=== PATIENT | female | born 1985 | race Caucasian/White ===

== ENCOUNTER 2018-01-10 17:32 | Emergency (ER) | END 2018-01-10 20:21 | disposition home or self-care (01) ==

== ENCOUNTER 2018-01-16 16:23 | Emergency (ER) | END 2018-01-16 19:04 | disposition home or self-care (01) ==

== ENCOUNTER 2018-05-03 00:24 | Emergency (ER) | payer MEDICAID, OTHER ==
[~2018-05-03] VITALS: Ht 152.4 cm; Wt 77.7 kg
[~2018-05-03 00:24] MED LIST: CEPH-443 PO; DIAZ5TAB PO; DOCU-144 PO; HYDR-3498 PO; HYDR-4011 PO; IBUP-1542 PO; MED4DP PO; TAMS-14 PO
[2018-05-03 00:32] VITALS: Ht 152.4 cm; Wt 77.7 kg
[2018-05-03] MEDS ORDERED: SOD CHLORIDE 0.9% 1,000 ML IV STA (01:19)
[2018-05-03] MEDS ORDERED: KETOROLAC 30 MG INJ IV STA (01:19)
[2018-05-03] MEDS ORDERED: ONDANSETRON 4 MG INJ IV STA (01:19)
[2018-05-03] MEDS ORDERED: morphine 4 MG/ML VIAL IV STA (02:27)
[2018-05-03] MEDS ORDERED: FAMO20TA18 PO (03:03)
[2018-05-03] MEDS ORDERED: ONDA4TAB14 PO (03:03)
[2018-05-03] MEDS ORDERED: HYDR-4011 PO (03:03)
[2018-05-03 03:30] VITALS: BP 128/60; PULSE 75; RESP 16
--- NOTE | 2018-05-03 04:19 | ERD ---
ER Documentation Chief Complaint Chief Complaint RUQ burning & stabbing abd pain radiating to right flank X3 days,vomiting HPI 32-year-old female presenting with right upper quadrant pain. Patient describes it as a stabbing type sensation that radiates to her back. She states she also has some pain along the flank. She denies any vomiting. Feels nauseous. Has not taken medications for symptoms. Denies any medical problems. NKDA. Surgical history and cholecystectomy. Social history denies ROS All systems reviewed and are negative except as per history of present illness. Medications Home Meds Active Scripts Famotidine* (Famotidine*) 20 Mg Tablet, 20 MG PO BID, #60 TAB Prov:NATASHA DAVIS PA-C 05/03/18 Ondansetron (Ondansetron Odt) 4 Mg Tab.rapdis, 4 MG PO Q6H PRN for NAUSEA AND/OR VOMITING, #10 TAB Prov:NATASHA DAVIS PA-C 05/03/18 Hydrocodone/Acetaminophen (Sylvester 5-325 Tablet) 1 Each Tablet, 1 TAB PO Q6H PRN for PAIN, #7 TAB Prov:NATASHA DAVIS PA-C 05/03/18 Tamsulosin Hcl* (Flomax*) 0.4 Mg Cap.er.24h, 0.4 MG PO BID, #30 CAP Prov:YESIKA RILEY PA-C 01/16/18 Ibuprofen* (Motrin*) 600 Mg Tab, 600 MG PO Q6, #30 TAB Prov:YESIKA RILEY PA-C 01/16/18 Cephalexin* (Keflex*) 500 Mg Capsule, 500 MG PO QID for 5 Days, CAP Prov:YESIKA RILEY PA-C 01/16/18 Docusate Sodium* (Colace*) 100 Mg Capsule, 100 MG PO TID, #30 CAP Prov:YESIKA RILEY PA-C 01/16/18 Hydrocodone/Acetaminophen (Sylvester 5-325 Tablet) 1 Each Tablet, 1 TAB PO Q6H PRN for PAIN, #7 TAB Prov:YESIKA RILEY PA-C 01/16/18 Methylprednisolone* (Medrol* DOSE PACK) 4 Mg/Dose-Pack Tab.ds.pk, 4 MG PO . DIRECTED for 6 Days, #1 PACKET Prov:VU KOENIG 01/10/18 Diazepam* (Valium*) 5 Mg Tablet, 5 MG PO Q8, #10 TAB Prov:VU KOENIG 01/10/18 Ibuprofen* (Motrin*) 600 Mg Tab, 600 MG PO Q6, #30 TAB Prov:VU KOENIG 01/10/18 Reported Medications Tamsulosin Hcl* (Flomax*) 0.4 Mg Cap.er.24h, 0.4 MG PO DAILY, CAP 06/23/14 Hydrocodone Bit-Acetaminophen* (Sylvester*) 5-325 Mg Tab, 1 TAB PO QID PRN for SEVERE PAIN LEVEL 7-10, TAB 06/23/14 Allergies Allergies: Coded Allergies: No Known Allergy (Unverified , 12/16/13) PMhx/Soc Medical and Surgical Hx: pt denies Medical Hx Hx Neurological Disorder: No Hx Respiratory Disorders: No Hx Cardiac Disorders: No Hx Psychiatric Problems: No Hx Miscellaneous Medical Probl: No Hx Alcohol Use: No Hx Substance Use: No Hx Tobacco Use: No Smoking Status: Never smoker FmHx Family History: No diabetes, No coronary disease, No other Physical Exam Vitals Vital Signs Date Temp Pulse Resp B/P (MAP) Pulse Ox O2 O2 Flow FiO2 Time Delivery Rate 05/03/18 97.4 75 16 128/60 99 Room Air 03:30 (82) 05/03/18 99.0 92 18 141/81 99 00:32 (101) Physical Exam GENERAL: The patient is well-appearing, well-nourished, in no acute distress HEENT: Atraumatic. Conjunctivae are pink. Pupils equal, round, and reactive to light. There is no scleral icterus. Tympanic membranes clear bilaterally. Oropharynx clear. No nystagmus or photophobia. CHEST: Clear to auscultation bilaterally. There are no rales, wheezes or rhonchi. HEART: Regular rate and rhythm. No murmurs, clicks, rubs or gallops. No S3 or S4. ABDOMEN:Soft, nontender and nondistended. Good bowel sounds. No rebound or guarding. No gross peritonitis. No gross organomegaly or masses. No Leonard sign or McBurney point tenderness. BACK: No midline or flank tenderness. Result Diagram: 05/03/18 0135 05/03/18 0135 Results 24 hrs Laboratory Tests Test 05/03/18 01:35 05/03/18 01:41 05/03/18 01:45 White Blood Count 10.4 10^3/ul Red Blood Count 4.46 10^6/ul Hemoglobin 12.8 g/dl Hematocrit 37.7 % Mean Corpuscular Volume 84.5 fl Mean Corpuscular Hemoglobin 28.7 pg Mean Corpuscular 34.0 g/dl Hemoglobin Concent Red Cell Distribution Width 12.6 % Platelet Count 258 10^3/UL Mean Platelet Volume 8.9 fl Immature Granulocytes % 0.400 % Neutrophils % 59.6 % Lymphocytes % 31.3 % Monocytes % 6.8 % Eosinophils % 1.4 % Basophils % 0.5 % Nucleated Red Blood Cells % 0.0 /100WBC Immature Granulocytes # 0.040 10^3/ul Neutrophils # 6.2 10^3/ul Lymphocytes # 3.3 10^3/ul Monocytes # 0.7 10^3/ul Eosinophils # 0.2 10^3/ul Basophils # 0.1 10^3/ul Nucleated Red Blood Cells # 0.0 10^3/ul Sodium Level 141 mmol/L Potassium Level 3.7 mmol/L Chloride Level 106 mmol/L Carbon Dioxide Level 24 mmol/L Anion Gap 11 Blood Urea Nitrogen 15 mg/dl Creatinine 0.61 mg/dl Est Glomerular Filtrat > 60 mL/min Rate mL/min Glucose Level 104 mg/dl Calcium Level 9.9 mg/dl Total Bilirubin 0.2 mg/dl Direct Bilirubin 0.00 mg/dl Indirect Bilirubin 0.2 mg/dl Aspartate Amino Transf (AST/SGOT) 65 IU/L Alanine 94 IU/L Aminotransferase (ALT/SGPT) Alkaline Phosphatase 66 IU/L Total Protein 8.2 g/dl Albumin 4.5 g/dl Globulin 3.70 g/dl Albumin/Globulin Ratio 1.21 Lipase 137 U/L Urine Color STRAW Urine Clarity CLEAR Urine pH 7.0 Urine Specific [place] 1.010 Urine Ketones NEGATIVE mg/dL Urine Nitrite NEGATIVE mg/dL Urine Bilirubin NEGATIVE mg/dL Urine Urobilinogen NEGATIVE mg/dL Urine Leukocyte Esterase NEGATIVE Sonya/ul Urine Microscopic RBC 155 /HPF Urine Microscopic WBC 3 /HPF Urine Bacteria FEW /HPF Urine Hemoglobin 3+ mg/dL Urine Glucose NEGATIVE mg/dL Urine Total Protein NEGATIVE mg/dl POC Beta HCG, Qualitative NEGATIVE Current Medications Medications Dose Sig/Jeremias Start Time Status Last (Trade) Ordered Route PRN Stop Time Admin Dose Reason Admin Sodium 1,000 ml @ Q1H STAT 05/03/18 DC 05/03/18 Chloride 1,000 mls/hr IV 01:19 05/03/18 01:51 02:18 Ondansetron 4 mg ONCE STAT 05/03/18 DC 05/03/18 HCl (Zofran IV 01:19 05/03/18 01:51 Inj) 01:21 Ketorolac 30 mg ONCE STAT 05/03/18 DC 05/03/18 Tromethamine IV 01:19 05/03/18 01:51 (Toradol) 01:21 Morphine 4 mg ONCE STAT 05/03/18 DC 05/03/18 Sulfate IV 02:27 05/03/18 02:31 (morphine) 02:28 Procedures/MDM DIAGNOSTIC IMAGING REPORT Patient: MARCELLO BAUMANN : 1985 Age: 32 Sex: F [id number] DOS: 05/03/18 0119 Ordering MD: NORMAN DAVIS PA-C Location: [facility] Room/Bed: PROCEDURE: CT of the abdomen and pelvis without contrast CLINICAL INDICATION: Abdominal pain TECHNIQUE: Spiral CT images through the abdomen and pelvis without the use of contrast. The administered radiation dose is CTDI 13.92 mGy and DLP 810.06 mGy*cm. Coronal and sagittal reformatted images were submitted. One or more of the following dose reduction techniques were used: automated exposure control, adjustment of the mA and/or kV according to patient size, or use of iterative reconstruction technique. DICOM images are available. COMPARISON: CT 01/16/2018 FINDINGS: Lack of oral and intravenous contrast somewhat limits evaluation. Clear. No pleural effusion is seen. The liver is decreased in attenuation. The spleen, adrenal glands and pancreas are unremarkable. Cholecystectomy clips are visualized. There is no biliary ductal dilatation. The kidneys are normal in size and contour. There are tiny bilateral renal medullary calcifications. No hydronephrosis is seen. The aorta is normal in caliber. No adenopathy or ascites is seen. There is no evidence for bowel obstruction, free air, or abscess. The appendix is normal in appearance. . The uterus appears enlarged with an IUD in place. The bladder is unremarkable. Bilateral sacroiliac joints are narrowed and sclerotic.. IMPRESSION: Tiny bilateral renal medullary calculi. No hydronephrosis.. Fatty infiltration of the liver. Enlarged uterus with an IUD in place. MDM: 32-year-old female presenting with right upper quadrant pain and vomiting. Patient's exam is non-concerning. Patient's blood work is normal and imaging is within normal limits. Patient be discharged with supportive medications. I have low suspicion for acute abdominal emergency. I have low suspicion for bowel obstruction. Patient is discharged stricter precautions and told to follow-up with primary care within 1-2 days for close evaluation. Patient is told to follow-up with primary care and to return to ER if symptoms change or worsen. All questions answered discharge Departure Diagnosis: Primary Impression: Abdominal pain Condition: Stable Patient Instructions: Abdominal Pain Referrals: [facility] YOU HAVE RECEIVED A MEDICAL SCREENING EXAM AND THE RESULTS INDICATE THAT YOU DO NOT HAVE A CONDITION THAT REQUIRES URGENT TREATMENT IN THE EMERGENCY DEPARTMENT. FURTHER EVALUATION AND TREATMENT OF YOUR CONDITION CAN WAIT UNTIL YOU ARE SEEN IN YOUR DOCTORS OFFICE WITHIN THE NEXT 1-2 DAYS. IT IS YOUR RESPONSIBILITY TO MAKE AN APPOINTMENT FOR FOLOW-UP CARE. IF YOU HAVE A PRIMARY DOCTOR --you should call your primary doctor and schedule an appointment IF YOU DO NOT HAVE A PRIMARY DOCTOR YOU CAN CALL OUR PHYSICIAN REFERRAL HOTLINE AT IF YOU CAN NOT AFFORD TO SEE A PHYSICIAN YOU CAN CHOSE FROM THE FOLLOWING [facility] [address] [facility] [facility] [address] [facility] [facility] [address] [facility] [facility] [address] [facility]. [facility] [address] [facility]. [facility]. [address] Additional Instructions: FOLLOW UP WITH YOUR PRIMARY CARE PHYSICIAN TOMORROW.Return to this facility if you are not improving as expected. NATASHA DAVIS PA-C May 03, 2018 04:19
== END 2018-05-03 03:32 | disposition home or self-care (01) ==
LOC: FTE 00:24
DX: R10.11 Right upper quadrant pain (principal)
CPT/HCPCS: 36415; 74176; 80053; 81001; 81025; 83690; 85025; 96361; 96374; 96375; J1885; J2270; J2405; J7030; Z7502

== ENCOUNTER 2018-06-16 13:41 | Emergency (ER) | payer MEDICAID ==
[~2018-06-16] VITALS: Ht 157.5 cm; Wt 76.0 kg
[~2018-06-16 13:41] MED LIST changes: +FAMO20TA18 PO; +ONDA4TAB14 PO
[2018-06-16 13:47] VITALS: Ht 157.5 cm; Wt 76.0 kg
[2018-06-16] MEDS ORDERED: ONDANSETRON 4 MG INJ IV STA (16:14)
[2018-06-16] MEDS ORDERED: morphine 4 MG/ML VIAL IV STA (16:14)
[2018-06-16] MEDS ORDERED: KETOROLAC 15 MG INJ IV STA (16:14)
[2018-06-16] MEDS ORDERED: HYDR-4011 PO (17:25)
[2018-06-16] MEDS ORDERED: ONDA4TAB14 PO (17:25)
[2018-06-16 17:39] VITALS: BP 126/66; PULSE 72; RESP 18
--- NOTE | 2018-06-16 17:48 | ERD ---
ER Documentation Chief Complaint Chief Complaint RIGHT FLANK PAIN X 9 DAYS, DENIES DYSURIA HPI 32-year-old female with a history of kidney stones presenting with right flank pain that started yesterday. She denies any hematuria or dysuria. The pain has been intermittent but today was much more severe and constant. The pain is in the right flank and radiates to the right lower quadrant. She states that this is typical pain for her kidney stones. Her last episode of kidney stones was about 2 years ago and at that time she required surgery. She complains of associated nausea without vomiting. Currently her pain is an 8 out of 10 with no alleviating or exacerbating factors. Ibuprofen did not help at home. ROS All systems reviewed and are negative except as per history of present illness. Medications Home Meds Active Scripts Ondansetron (Ondansetron Odt) 4 Mg Tab.rapdis, 4 MG PO Q6H PRN for NAUSEA AND/OR VOMITING, #10 TAB Prov:RIC KUMAR MD 06/16/18 Hydrocodone/Acetaminophen (Waldo 5-325 Tablet) 1 Each Tablet, 1 TAB PO Q6H PRN for PAIN, #7 TAB Prov:RIC KUMAR MD 06/16/18 Famotidine* (Famotidine*) 20 Mg Tablet, 20 MG PO BID, #60 TAB Prov:NATASHA DAVIS PA-C 05/03/18 Ondansetron (Ondansetron Odt) 4 Mg Tab.rapdis, 4 MG PO Q6H PRN for NAUSEA AND/OR VOMITING, #10 TAB Prov:NATASHA DAVIS PA-C 05/03/18 Hydrocodone/Acetaminophen (Waldo 5-325 Tablet) 1 Each Tablet, 1 TAB PO Q6H PRN for PAIN, #7 TAB Prov:NATASHA DAVIS PA-C 05/03/18 Tamsulosin Hcl* (Flomax*) 0.4 Mg Cap.er.24h, 0.4 MG PO BID, #30 CAP Prov:YESIKA RILEY PA-C 01/16/18 Ibuprofen* (Motrin*) 600 Mg Tab, 600 MG PO Q6, #30 TAB Prov:YESIKA RILEY PA-C 9/22/18 Cephalexin* (Keflex*) 500 Mg Capsule, 500 MG PO QID for 5 Days, CAP Prov:YESIKA RILEY PA-C 01/16/18 Docusate Sodium* (Colace*) 100 Mg Capsule, 100 MG PO TID, #30 CAP Prov:YESIKA RILEY PA-C 01/16/18 Hydrocodone/Acetaminophen (Waldo 5-325 Tablet) 1 Each Tablet, 1 TAB PO Q6H PRN for PAIN, #7 TAB Prov:YESIKA RILEY PA-C 01/16/18 Methylprednisolone* (Medrol* DOSE PACK) 4 Mg/Dose-Pack Tab.ds.pk, 4 MG PO . DIRECTED for 6 Days, #1 PACKET Prov:VU KOENIG 01/10/18 Diazepam* (Valium*) 5 Mg Tablet, 5 MG PO Q8, #10 TAB Prov:VU KOENIG 01/10/18 Ibuprofen* (Motrin*) 600 Mg Tab, 600 MG PO Q6, #30 TAB Prov:VU KOENIG 01/10/18 Reported Medications Tamsulosin Hcl* (Flomax*) 0.4 Mg Cap.er.24h, 0.4 MG PO DAILY, CAP 06/23/14 Hydrocodone Bit-Acetaminophen* (Waldo*) 5-325 Mg Tab, 1 TAB PO QID PRN for SEVERE PAIN LEVEL 7-10, TAB 06/23/14 Allergies Allergies: Coded Allergies: No Known Allergy (Unverified , 06/16/18) PMhx/Soc History of Surgery: Yes (Surgery for kidney stones) Hx Neurological Disorder: No Hx Respiratory Disorders: No Hx Cardiac Disorders: No Hx Psychiatric Problems: No Hx Miscellaneous Medical Probl: Yes (Kidney stones) Hx Alcohol Use: No Hx Substance Use: No Hx Tobacco Use: No Smoking Status: Never smoker FmHx Family History: No diabetes Physical Exam Vitals Vital Signs Date Temp Pulse Resp B/P (MAP) Pulse Ox O2 O2 Flow FiO2 Time Delivery Rate 06/16/18 98.1 72 18 126/66 100 Room Air 17:39 (86) 06/16/18 75 18 122/64 100 Room Air 16:51 (83) 06/16/18 97.6 78 16 126/92 100 13:47 (103) Physical Exam Const: Mild distress secondary to pain, nontoxic Head: Atraumatic Eyes: Normal Conjunctiva ENT: Normal External Ears, Nose and Mouth. Neck: Full range of motion. No meningismus. Resp: Clear to auscultation bilaterally Cardio: Regular rate and rhythm, no murmurs Abd: Soft, right lower quadrant tender without rebound or guarding, non distended. Normal bowel sounds Skin: No petechiae or rashes Back: Mild right CVA tenderness Ext: No cyanosis, or edema Neur: Awake and alert Psych: Normal Mood and Affect Result Diagram: 06/16/18 1632 06/16/18 1632 Results 24 hrs Laboratory Tests Test 06/16/18 16:32 06/16/18 16:42 White Blood Count 8.3 10^3/ul Red Blood Count 4.36 10^6/ul Hemoglobin 12.5 g/dl Hematocrit 38.1 % Mean Corpuscular Volume 87.4 fl Mean Corpuscular Hemoglobin 28.7 pg Mean Corpuscular Hemoglobin Concent 32.8 g/dl Red Cell Distribution Width 13.0 % Platelet Count 235 10^3/UL Mean Platelet Volume 9.2 fl Immature Granulocytes % 0.400 % Neutrophils % 59.8 % Lymphocytes % 32.1 % Monocytes % 6.2 % Eosinophils % 1.0 % Basophils % 0.5 % Nucleated Red Blood Cells % 0.0 /100WBC Immature Granulocytes # 0.030 10^3/ul Neutrophils # 5.0 10^3/ul Lymphocytes # 2.7 10^3/ul Monocytes # 0.5 10^3/ul Eosinophils # 0.1 10^3/ul Basophils # 0.0 10^3/ul Nucleated Red Blood Cells # 0.0 10^3/ul Urine Color STRAW Urine Clarity SLIGHTLY CLOUDY Urine pH 7.0 Urine Specific [place] 1.009 Urine Ketones NEGATIVE mg/dL Urine Nitrite NEGATIVE mg/dL Urine Bilirubin NEGATIVE mg/dL Urine Urobilinogen NEGATIVE mg/dL Urine Leukocyte Esterase NEGATIVE Sonya/ul Urine Microscopic RBC 1 /HPF Urine Microscopic WBC 2 /HPF Urine Squamous Epithelial Cells FEW /HPF Urine Bacteria FEW /HPF Urine Hemoglobin NEGATIVE mg/dL Urine Glucose NEGATIVE mg/dL Urine Total Protein NEGATIVE mg/dl Sodium Level 141 mmol/L Potassium Level 4.2 mmol/L Chloride Level 99 mmol/L Carbon Dioxide Level 28 mmol/L Anion Gap 14 Blood Urea Nitrogen 14 mg/dl Creatinine 0.72 mg/dl Est Glomerular Filtrat Rate mL/min > 60 mL/min Glucose Level 95 mg/dl Calcium Level 9.6 mg/dl POC Beta HCG, Qualitative NEGATIVE Current Medications Medications Dose Sig/Jeremias Start Time Status Last (Trade) Ordered Route PRN Stop Time Admin Dose Reason Admin Morphine 4 mg ONCE STAT 06/16/18 DC 06/16/18 Sulfate IV 16:14 16:46 (morphine) 06/16/18 16:16 Ondansetron 4 mg ONCE STAT 06/16/18 DC 06/16/18 HCl (Zofran IV 16:14 16:46 Inj) 06/16/18 16:16 Ketorolac 15 mg ONCE STAT 06/16/18 DC 06/16/18 Tromethamine IV 16:14 16:46 (Toradol) 06/16/18 16:16 Procedures/MDM EMERGENT LABS AND DIAGNOSTIC STUDIES: Lab Results above were reviewed and interpreted by me. CBC: no anemia or evidence of infection BMP: No evidence of electrolyte abnormality, renal failure, hypoglycemia negative UA: no evidence of infection Radiology Results as interpreted by Radiology below were reviewed by Yousuf Kumar MD: Ultrasound kidneys: 1. Mild fullness of right renal collecting system. No obstructing renal calculus is visualized by ultrasound. Consider further evaluation with CT scan. 2. Normal left kidney and collecting system Initial Nursing notes reviewed. Previous Medical Records requested via the Electronic Health Record. EMERGENCY DEPARTMENT COURSE / MEDICAL DECISION MAKING: Patient is presenting with right flank pain, likely secondary to recurrent kidney stones. Since she has had a CT scan within the past 2 months, I did not repeat a CT scan. On her last CT scan in April 2018, no stones were seen. Her ultrasound today did show some fullness in the right kidney which suggests to me that she does have an obstructing kidney stone. However I do not feel any further imaging is necessary at this time as her pain is well controlled in the ED with pain medications. There is no evidence of pyelonephritis. I doubt acute appendicitis or other cause of acute surgical abdomen. Patient is stable for discharge with continued outpatient follow-up. I gave her the information for the urologist, Dr. Arana. She will need a referral from her primary care doctor. Prescription for Waldo and Zofran given. Patient understands discharge plan and feels comfortable with the plan. Strict return precautions discussed. Patient's blood pressure was elevated (>120/80) but appears stable without evidence of hypertensive emergency or urgency. The patient was counseled about the risks of hypertension and urged to pursue outpatient monitoring and therapy within a week with their primary care physician. Departure Diagnosis: Primary Impression: Right kidney stone Additional Impression: Renal colic on right side Condition: Stable Patient Instructions: Kidney Stone W/ Colic Referrals: ESEQUIEL WATSON MD Urologo [facility] YOU HAVE RECEIVED A MEDICAL SCREENING EXAM AND THE RESULTS INDICATE THAT YOU DO NOT HAVE A CONDITION THAT REQUIRES URGENT TREATMENT IN THE EMERGENCY DEPARTMENT. FURTHER EVALUATION AND TREATMENT OF YOUR CONDITION CAN WAIT UNTIL YOU ARE SEEN IN YOUR DOCTORS OFFICE WITHIN THE NEXT 1-2 DAYS. IT IS YOUR RESPONSIBILITY TO MAKE AN APPOINTMENT FOR FOLOW-UP CARE. IF YOU HAVE A PRIMARY DOCTOR --you should call your primary doctor and schedule an appointment IF YOU DO NOT HAVE A PRIMARY DOCTOR YOU CAN CALL OUR PHYSICIAN REFERRAL HOTLINE AT IF YOU CAN NOT AFFORD TO SEE A PHYSICIAN YOU CAN CHOSE FROM THE FOLLOWING [facility] [address] [facility] [address] [facility] [facility] [address] [facility] [address] [facility] [address] [facility]. [facility]. [address] Additional Instructions: Necesitas kayden cristal con un medico primario para obtener kayden referencia para sanjuanita Urologo. Si tienes fiebres o las medicinas no ayudando, regresa a la ta de emergencias. RIC KUMAR MD Jun 16, 2018 17:48
== END 2018-06-16 17:40 | disposition home or self-care (01) ==
LOC: E/R 13:41
DX: N20.0 Calculus of kidney (principal); N23 Unspecified renal colic
CPT/HCPCS: 36415; 76775; 80048; 81001; 81025; 85025; 87086; 96374; 96375; J1885; J2270; J2405; Z7502; 81003

== ENCOUNTER 2018-06-25 18:33 | Emergency (ER) | payer MEDICAID ==
[~2018-06-25] VITALS: Ht 157.5 cm; Wt 75.2 kg
[2018-06-25 18:49] VITALS: Ht 157.5 cm; Wt 75.2 kg
[2018-06-25] MEDS ORDERED: SOD CHLORIDE 0.9% 1,000 ML IV STA (22:20)
[2018-06-25] MEDS ORDERED: ONDANSETRON 4 MG INJ IV STA (22:20)
[2018-06-25] MEDS ORDERED: KETOROLAC 30 MG INJ IV STA (22:20)
[2018-06-25] MEDS ORDERED: morphine 2 MG INJ IV STA (22:20)
--- NOTE | 2018-06-25 23:50 | ERD ---
ER Documentation Chief Complaint Chief Complaint FLANK PAIN WITH DYSURIA X 2 WEEKS HPI 32 year old liberian speaking F with hx of multiple kidney stones who presents to the ED with right flank pain. Pt seen here 2 weeks ago for same complaints. Renal US was suspicious for a right sided renal stone and she was discharged home with a prescription for Zofran. She states her pain today is the same and not improved with her medications at home. Pain is intermittent, sharp in quality and radiates towards her right lower quadrant. She endorses some nausea without vomiting. Reports dysuria without any fevers, chills, fevers, chills or constipation. No other complaints. ROS All systems reviewed and are negative except as per history of present illness. Medications Home Meds Active Scripts Ibuprofen* (Ibuprofen*) 600 Mg Tablet, 600 MG PO Q6, #30 TAB Prov:WALT SILVA PA-C 06/26/18 Ondansetron (Ondansetron Odt) 4 Mg Tab.rapdis, 4 MG PO Q6H PRN for NAUSEA AND/OR VOMITING, #10 TAB Prov:RIC SPEARS MD 06/16/18 Hydrocodone/Acetaminophen ([place] 5-325 Tablet) 1 Each Tablet, 1 TAB PO Q6H PRN for PAIN, #7 TAB Prov:RIC SPEARS MD 06/16/18 Famotidine* (Famotidine*) 20 Mg Tablet, 20 MG PO BID, #60 TAB Prov:NATASHA DAVIS PA-C 05/03/18 Ondansetron (Ondansetron Odt) 4 Mg Tab.rapdis, 4 MG PO Q6H PRN for NAUSEA AND/OR VOMITING, #10 TAB Prov:NATASHA DAVIS PA-C 05/03/18 Hydrocodone/Acetaminophen ([place] 5-325 Tablet) 1 Each Tablet, 1 TAB PO Q6H PRN for PAIN, #7 TAB Prov:NATASHA DAVIS PA-C 05/03/18 Tamsulosin Hcl* (Flomax*) 0.4 Mg Cap.er.24h, 0.4 MG PO BID, #30 CAP Prov:YESIKA RILEY PA-C 01/16/18 Ibuprofen* (Motrin*) 600 Mg Tab, 600 MG PO Q6, #30 TAB Prov:YESIKA RILEY PA-C 01/16/18 Cephalexin* (Keflex*) 500 Mg Capsule, 500 MG PO QID for 5 Days, CAP Prov:YESIKA RILEY PA-C 01/16/18 Docusate Sodium* (Colace*) 100 Mg Capsule, 100 MG PO TID, #30 CAP Prov:YESIKA RILEY PA-C 01/16/18 Hydrocodone/Acetaminophen ([place] 5-325 Tablet) 1 Each Tablet, 1 TAB PO Q6H PRN for PAIN, #7 TAB Prov:YESIKA RILEY PA-C 01/16/18 Methylprednisolone* (Medrol* DOSE PACK) 4 Mg/Dose-Pack Tab.ds.pk, 4 MG PO . DIRECTED for 6 Days, #1 PACKET Prov:VU KOENIG 01/10/18 Diazepam* (Valium*) 5 Mg Tablet, 5 MG PO Q8, #10 TAB Prov:VU KOEING 01/10/18 Ibuprofen* (Motrin*) 600 Mg Tab, 600 MG PO Q6, #30 TAB Prov:VU KOENIG 01/10/18 Reported Medications Tamsulosin Hcl* (Flomax*) 0.4 Mg Cap.er.24h, 0.4 MG PO DAILY, CAP 06/23/14 Hydrocodone Bit-Acetaminophen* ([place]*) 5-325 Mg Tab, 1 TAB PO QID PRN for SEVERE PAIN LEVEL 7-10, TAB 06/23/14 Allergies Allergies: Coded Allergies: No Known Allergy (Unverified , 06/16/18) PMhx/Soc History of Surgery: No (Cholecystectomy) Anesthesia Reaction: No Hx Neurological Disorder: No Hx Respiratory Disorders: No Hx Cardiac Disorders: No Hx Psychiatric Problems: No Hx Miscellaneous Medical Probl: Yes (Nephrolithiasis) Hx Alcohol Use: No Hx Substance Use: No Hx Tobacco Use: No Smoking Status: Never smoker Physical Exam Vitals Vital Signs Date Temp Pulse Resp B/P (MAP) Pulse Ox O2 O2 Flow FiO2 Time Delivery Rate 06/26/18 98.5 65 18 105/65 100 Room Air 00:34 (78) 06/25/18 99.2 79 18 140/65 99 18:49 (90) Physical Exam Const: Mild distress secondary to pain Head: Atraumatic Eyes: Normal Conjunctiva ENT: Normal External Ears, Nose and Mouth. Neck: Full range of motion. No meningismus. Resp: Clear to auscultation bilaterally Cardio: Regular rate and rhythm, no murmurs Abd: Soft, + mild RLQ tenderness. Non distended. Normal bowel sounds. Negative Leonard's or Rovsings. No masses or organomegaly Skin: No petechiae or rashes Back: + Moderate right CVA tenderness. No midline tenderness. No step-offs. Ext: No cyanosis, or edema Neur: Awake and alert Psych: Normal Mood and Affect Results 24 hrs Laboratory Tests Test 06/25/18 22:27 06/25/18 22:36 Urine Color STRAW Urine Clarity CLEAR Urine pH 6.0 Urine Specific [place] 1.005 Urine Ketones NEGATIVE mg/dL Urine Nitrite NEGATIVE mg/dL Urine Bilirubin NEGATIVE mg/dL Urine Urobilinogen NEGATIVE mg/dL Urine Leukocyte Esterase NEGATIVE Sonya/ul Urine Hemoglobin NEGATIVE mg/dL Urine Glucose NEGATIVE mg/dL Urine Total Protein NEGATIVE mg/dl POC Beta HCG, Qualitative NEGATIVE Current Medications Medications Dose Sig/Jeremias Start Time Status Last (Trade) Ordered Route PRN Stop Time Admin Dose Reason Admin Sodium 1,000 ml @ Q1H STAT 06/25/18 DC 06/25/18 Chloride 1,000 mls/hr IV 22:20 06/25/18 22:39 23:19 Morphine 2 mg ONCE STAT 06/25/18 DC 06/25/18 Sulfate IV 22:20 06/25/18 23:25 (morphine) 22:23 Ondansetron 4 mg ONCE STAT 06/25/18 DC 06/25/18 HCl (Zofran IV 22:20 06/25/18 22:39 Inj) 22:23 Ketorolac 30 mg ONCE STAT 06/25/18 DC 06/25/18 Tromethamine IV 22:20 06/25/18 22:39 (Toradol) 22:23 Procedures/MDM EMERGENT LABS AND DIAGNOSTIC STUDIES: Lab Results above were reviewed and interpreted by me as below. Urine: no e/o acute infection or hematuria Upreg: negative Radiology Results as interpreted by Radiology: PROCEDURE: XR Abdomen. CLINICAL INDICATION: Right flank pain TECHNIQUE: AP abdomen x-rays, 2 images sent to the PACS for review. COMPARISON: None. FINDINGS: The bowel gas pattern is normal. There is no evidence of obstruction. No visceromegaly, soft tissue mass or pathologic calcification is demonstrated.Findings are compatible with prior cholecystectomy The osseous structures are unremarkable. RPTAT:HJJR IMPRESSION: Changes of prior cholecystectomy without evidence of radiopaque calculus or acute intra-abdominal abnormality. Nursing Notes Reviewed. Previous Medical Records requested via the Electronic Health Record. EMERGENCY DEPARTMENT COURSE / MEDICAL DECISION MAKING: This is a 32 yo F with PMHx of multiple kidney stones who presents with right flank pain. She was seen here 2 weeks ago for same complaints. Renal US at that time was suggestive of a right sided kidney stone. She presents again today requesting pain relief. She has no signs of an acute surgical abdomen on physical exam. Since this pt has a known history of recent kidney stone within the past 1 year, falls between the ages of 18-50 and presents with pain typical of her renal colic, an abdominal CT was not performed. I ordered a KUB XR which was negative for any calcifications and UA had no evidence of hematuria. The cause of pt's pain is unclear at this time however kidney stone is not completely excluded. Upon re-evaluation, pt's pain had improved status post IVFs, Toradol, Zofran and Morphine and she wanted to go home. Low suspicion for pyelonephritis, hydronephrosis, urinary obstruction, or any other emergent process. She was given a prescription for Ibuprofen and a list of clinics to follow up with in 2 days. Strict return precautions given. Prior to discharge, patients vital signs have been reviewed PRESCRIPTIONS: Ibuprofen SPECIALIST FOLLOW UP RECOMMENDED: None Patient has been advised to follow up with primary care in 1-2 days. Departure Diagnosis: Primary Impression: Right flank pain Condition: Stable Patient Instructions: Flank Pain, Uncertain Cause [facility] Additional Instructions: You were given a list of community clinics to follow up with in 2 days. Return to the ED for any new or worsening symptoms. WALT SILVA PA-C Jun 25, 2018 23:50
[2018-06-26] MEDS ORDERED: IBUP-1542 PO (00:20)
[2018-06-26 00:34] VITALS: BP 105/65; PULSE 65; RESP 18
== END 2018-06-26 00:36 | disposition home or self-care (01) ==
LOC: FTE 18:33
DX: R10.9 Unspecified abdominal pain (principal)
CPT/HCPCS: 74018; 81003; 81025; 96374; 96375; J1885; J2270; J2405; J7030; Z7502

== ENCOUNTER 2018-08-11 18:43 | Emergency (ER) | payer MEDICAID ==
[~2018-08-11] VITALS: Ht 152.4 cm; Wt 78.0 kg
[2018-08-11 18:49] VITALS: Ht 152.4 cm; Wt 78.0 kg
[2018-08-11] MEDS ORDERED: ACETAMINOPHEN 500 MG TAB PO STA (20:17)
--- NOTE | 2018-08-11 20:17 | ERD ---
ER Documentation Chief Complaint Chief Complaint 6 weeks preg, c/o mid abd pain radiating to back HPI This is a 31-year-old female who presents emergency department with complaints of pelvic pain that radiates to the back. Stated that she is 6 weeks . Stated that she has an appointment with her OB this coming Thursday but does not know her name yet. LMP: 06/29/2018. SARA: 04/04/2019. . Denies headache, head injury, loss of consciousness, dizziness, neck pain, neck stiffness, throat pain, difficulty swallowing, difficulty breathing lying flat, shoulder pain, chest pain, back pain, nausea, vomiting, constipation, diarrhea, urinary symptoms, loss of bowel and bladder control, trauma, injury, falls, difficulty walking due to pain, numbness or tingling sensation, calf pain, recent travel, recent major surgery in the last 3 weeks, calf pain, recent long travel, recent exposure to any illness, recent antibiotic use in the last 3 months, fever, chills, seizures. Past medical history: Surgical history: x4. Social: Denies smoking, use of alcoholic beverages, use of illegal drugs. ROS All systems reviewed and are negative except as per history of present illness. Medications Home Meds Active Scripts Vit No.124/Iron/FA ( Vitamin Tablet) 1 Each Tablet, 1 EACH PO DAILY for 30 Days, TAB Prov:ELENA TAN 08/11/18 Acetaminophen* (Tylophen*) 500 Mg Capsule, 1 CAP PO Q6H PRN for PAIN AND OR ELEVATED TEMP, #20 CAP Prov:ELENA TAN 08/11/18 Ibuprofen* (Ibuprofen*) 600 Mg Tablet, 600 MG PO Q6, #30 TAB Prov:WALT SILVA PA-C 06/26/18 Ondansetron (Ondansetron Odt) 4 Mg Tab.rapdis, 4 MG PO Q6H PRN for NAUSEA AND/OR VOMITING, #10 TAB Prov:RIC SPEARS MD 06/16/18 Hydrocodone/Acetaminophen ([place] 5-325 Tablet) 1 Each Tablet, 1 TAB PO Q6H PRN for PAIN, #7 TAB Prov:RIC SPEARS MD 06/16/18 Famotidine* (Famotidine*) 20 Mg Tablet, 20 MG PO BID, #60 TAB Prov:NATASHA DAVIS PA-C 05/03/18 Ondansetron (Ondansetron Odt) 4 Mg Tab.rapdis, 4 MG PO Q6H PRN for NAUSEA AND/OR VOMITING, #10 TAB Prov:NATASHA DAVIS PA-C 05/03/18 Hydrocodone/Acetaminophen ([place] 5-325 Tablet) 1 Each Tablet, 1 TAB PO Q6H PRN for PAIN, #7 TAB Prov:NATASHA DAVIS PA-C 05/03/18 Tamsulosin Hcl* (Flomax*) 0.4 Mg Cap.er.24h, 0.4 MG PO BID, #30 CAP Prov:YESIKA RILEY PA-C 01/16/18 Ibuprofen* (Motrin*) 600 Mg Tab, 600 MG PO Q6, #30 TAB Prov:YESIKA RILEY PA-C 01/16/18 Cephalexin* (Keflex*) 500 Mg Capsule, 500 MG PO QID for 5 Days, CAP Prov:YESIKA RILEY PA-C 01/16/18 Docusate Sodium* (Colace*) 100 Mg Capsule, 100 MG PO TID, #30 CAP Prov:YESIKA RILEY PA-C 01/16/18 Hydrocodone/Acetaminophen ([place] 5-325 Tablet) 1 Each Tablet, 1 TAB PO Q6H PRN for PAIN, #7 TAB Prov:YESIKA RILEY PA-C 01/16/18 Methylprednisolone* (Medrol* DOSE PACK) 4 Mg/Dose-Pack Tab.ds.pk, 4 MG PO . DIRECTED for 6 Days, #1 PACKET Prov:VU KOENIG 01/10/18 Diazepam* (Valium*) 5 Mg Tablet, 5 MG PO Q8, #10 TAB Prov:VU KOENIG 01/10/18 Ibuprofen* (Motrin*) 600 Mg Tab, 600 MG PO Q6, #30 TAB Prov:VU KOENIG 01/10/18 Reported Medications Tamsulosin Hcl* (Flomax*) 0.4 Mg Cap.er.24h, 0.4 MG PO DAILY, CAP 2/27/15 Hydrocodone Bit-Acetaminophen* ([place]*) 5-325 Mg Tab, 1 TAB PO QID PRN for SEVERE PAIN LEVEL 7-10, TAB 06/23/14 Allergies Allergies: Coded Allergies: No Known Allergy (Unverified , 08/11/18) PMhx/Soc Medical and Surgical Hx: pt denies Medical Hx, pt denies Surgical Hx History of Surgery: No (Cholecystectomy) Anesthesia Reaction: No Hx Neurological Disorder: No Hx Respiratory Disorders: No Hx Cardiac Disorders: No Hx Psychiatric Problems: No Hx Miscellaneous Medical Probl: Yes (Nephrolithiasis) Hx Alcohol Use: No Hx Substance Use: No Hx Tobacco Use: No Smoking Status: Never smoker Physical Exam Vitals Vital Signs Date Temp Pulse Resp B/P (MAP) Pulse Ox O2 O2 Flow FiO2 Time Delivery Rate 08/11/18 99.4 82 18 124/58 100 Room Air 22:43 (80) 08/11/18 99.2 99 20 117/29 99 18:49 (58) Physical Exam Const: No acute distress Head: Atraumatic Eyes: Normal Conjunctiva ENT: Normal External Ears, Nose and Mouth. Neck: Full range of motion. No meningismus. Resp: Clear to auscultation bilaterally Cardio: Regular rate and rhythm, no murmurs Abd: Soft, non tender, non distended. Normal bowel sounds. Negative Leonard sign. Negative Fleming sign (heel jar test). Negative psoas sign. Negative Rov sing sign. No CVA tenderness. Able to tolerate steady gait without pain to abdomen. Skin: No petechiae or rashes. Color appears normal for ethnicity. No skin tenting. No signs of severe dehydration. Back: No midline or flank tenderness Ext: No cyanosis, or edema Neur: Awake and alert. No neurological deficit. Psych: Normal Mood and Affect Result Diagram: 08/11/18202408/11/182024 Results 24 hrs Laboratory Tests Test 08/11/18 20:25 White Blood Count 11.7 10^3/ul Red Blood Count 4.23 10^6/ul Hemoglobin 12.2 g/dl Hematocrit 36.9 % Mean Corpuscular Volume 87.2 fl Mean Corpuscular Hemoglobin 28.8 pg Mean Corpuscular Hemoglobin Concent 33.1 g/dl Red Cell Distribution Width 13.7 % Platelet Count 224 10^3/UL Mean Platelet Volume 9.2 fl Immature Granulocytes % 0.900 % Neutrophils % 67.2 % Lymphocytes % 25.9 % Monocytes % 4.4 % Eosinophils % 1.2 % Basophils % 0.4 % Nucleated Red Blood Cells % 0.0 /100WBC Immature Granulocytes # 0.100 10^3/ul Neutrophils # 7.9 10^3/ul Lymphocytes # 3.0 10^3/ul Monocytes # 0.5 10^3/ul Eosinophils # 0.1 10^3/ul Basophils # 0.1 10^3/ul Nucleated Red Blood Cells # 0.0 10^3/ul Urine Color STRAW Urine Clarity CLEAR Urine pH 6.0 Urine Specific [place] 1.010 Urine Ketones NEGATIVE mg/dL Urine Nitrite NEGATIVE mg/dL Urine Bilirubin NEGATIVE mg/dL Urine Urobilinogen NEGATIVE mg/dL Urine Leukocyte Esterase NEGATIVE Sonya/ul Urine Hemoglobin NEGATIVE mg/dL Urine Glucose NEGATIVE mg/dL Urine Total Protein NEGATIVE mg/dl Sodium Level 140 mmol/L Potassium Level 3.7 mmol/L Chloride Level 107 mmol/L Carbon Dioxide Level 23 mmol/L Anion Gap 10 Blood Urea Nitrogen 11 mg/dl Creatinine 0.63 mg/dl Est Glomerular Filtrat Rate mL/min > 60 mL/min Glucose Level 100 mg/dl Calcium Level 9.8 mg/dl Total Bilirubin 0.1 mg/dl Direct Bilirubin 0.00 mg/dl Indirect Bilirubin 0.1 mg/dl Aspartate Amino Transf (AST/SGOT) 26 IU/L Alanine Aminotransferase (ALT/SGPT) 27 IU/L Alkaline Phosphatase 60 IU/L Total Protein 7.8 g/dl Albumin 4.3 g/dl Globulin 3.50 g/dl Albumin/Globulin Ratio 1.22 Amylase Level 101 U/L Lipase 155 U/L Beta HCG, Quantitative 3234.0 mIU/ml Current Medications Medications Dose Sig/Jeremias Start Time Status Last (Trade) Ordered Route PRN Stop Time Admin Dose Reason Admin 500 mg ONCE STAT 08/11/18 DC 08/11/18 Acetaminophen PO 20:17 20:31 (Tylenol 08/11/18 20:21 Tab) Procedures/MDM Diagnostic tests: Urinalysis: Reviewed. Culture urine: Sent. Blood works: Reviewed. HCG quantitative: 3234.0 Type and Rh: A positive. OB ultrasound: Possible early intrauterine at 5 weeks and 0 days. No pole or yolk sac is yet visualized. Close followup ultrasound and hCG is recommended. Treatment: Tylenol p.o. Re-evaluation: No episode of emesis in the emergency department. Denies headache, chest pain, abdominal pain. Denies vaginal bleeding. No signs of hemorrhaging. Patient stated that she is comfortable going home. Differential diagnosis I have low suspicion for ectopic , sepsis, hemorrhage, abnormal , kidney stones, renal failure, obstructing kidney stone. Final diagnosis: Pelvic pain in . Prescription: Tylenol. vitamins. Follow-up with OB in the next 24-48 hours. Come back here in the emergency department for any new symptoms or any worsening symptoms. All questions and concerns were answered. Patient and family members verbalized understanding and agreed with plan of care. Hemodynamically stable on discharge. Departure Diagnosis: Primary Impression: Pelvic pain affecting in first trimester, antepartum Condition: Stable Additional Instructions: Follow-up with OB in the next 24-48 hours. Come back here in the emergency department for any new symptoms or any worsening symptoms. ELENA TAN Aug 11, 2018 20:17
[2018-08-11] MEDS ORDERED: ACET500C5 PO (22:30)
[2018-08-11] MEDS ORDERED: PREN-93 PO (22:31)
[2018-08-11 22:43] VITALS: BP 124/58; PULSE 82; RESP 18
== END 2018-08-11 22:45 | disposition home or self-care (01) ==
LOC: FTE 18:43
DX: O26.891 Other specified pregnancy related conditions, first trimester (principal); R10.2 Pelvic and perineal pain; Z3A.01 Less than 8 weeks gestation of pregnancy
CPT/HCPCS: 36415; 76801; 76817; 80053; 81003; 82150; 83690; 84702; 85025; 86900; 86901; 87086; Z7502; Z7610

== ENCOUNTER 2018-11-25 16:24 | Inpatient (IN) | payer MEDICAID ==
[~2018-11-25] VITALS: Ht 139.7 cm; Wt 81.9 kg
[~2018-11-25 16:24] MED LIST changes: +ACET500C5 PO; +PREN-93 PO
[2018-11-25 16:52] VITALS: BP 122/73; PULSE 95; RESP 20
[2018-11-25] MEDS ORDERED: LACTATED RINGER'S 1,000 ML IV SCH (17:30)
[2018-11-25 17:34] VITALS: Ht 139.7 cm; Wt 81.9 kg
[2018-11-25] MEDS ORDERED: ONDANSETRON 4 MG INJ IV PRN (22:00)
--- NOTE | 2018-11-25 22:03 | TRIAGE ---
OB Triage Datetime Report Generated by CPN: 11/25/2018 22:03 Datetime: 11/25/2018 19:40 Heart Rate FHR Baseline Rate: 150 Monitor Mode: External US Datetime: 11/25/2018 19:38 Pain Assessment Pain Scale: 7 Pain Presence: Constant Pain Type: Cramping Pain Location: Abdomen Datetime: 11/25/2018 17:38 Labor Evaluation Monitor Mode: External Resting Tone [place]: Relaxed Monitor Mode: External US Variability: Moderate 6-25 bpm Comments: fht's 145 Datetime: 11/25/2018 17:28 EGA: 21.3 Datetime: 11/25/2018 17:27 Time of Arrival: 11/25/2018 16:21 EGA: 20.3 Arrived By: Wheelchair Arrived From: Home Chief Complaint: lower abdominal pain, pain with urination and r sided flank pain Contractions: Denies/Absent Patient Complaints: Back Pain; Pain on Urination; Dizziness Initial Plan: cbc,U/A, RLQ u/s, kidney u/s; iv fluids Comments: prior to cpn archiving the pt was on efm and toco with paper printing from [id number] wit h fht's 140-150's with mod aileen and variable decels lasting 10-15s, approproate for GA, no ctx's noted per toco Datetime: 11/25/2018 16:52 Assessment Type: Triage Maternal Assessment Level of Consciousness: Keenly Alert, Responsive DTR's/Clonus: DTRs 2+; No Clonus Headache: Denies Blurred Vision: No Respiratory Effort: Unlabored; Regular Rhythm; Equal Expansion Breath Sounds, Left: Clear and Equal Breath Sounds, Right: Clear and Equal Nausea/Vomiting: Denies RUQ Epigastric Pain: Denies Lower Extremities Edema: None Degree: None Upper Extremities Edema: None Degree: None Facial Edema: None Fall Risk Assessment History of Falling: (0) No Secondary Diagnosis: (0) No Ambulatory Aid: (0) Bedrest/Nurse Assist IV Therapy: (0) No Gait: (0) Normal/Bedrest/Immobile Mental Status: (0) Oriented to Own Ability Fall Score: 0 Fall Risk Score Definition: No Risk: No action required
[2018-11-25] MEDS: CEFTRIAXONE 1 GM/50 ML (PMX) 50 ML IVPB SCH (22:06)
[2018-11-25] MEDS: SOD CHLORIDE 0.9% 1,000 ML IV SCH (22:07)
[2018-11-25] MEDS: ACETAMINOPHEN 325 MG TAB PO PRN ×2 (22:12→22:13)
--- NOTE | 2018-11-25 22:25 | HP ---
Date/Time of Note Date/Time of Note DATE: 11/25/18 TIME: 22:05 OB - History Hx of Present Free Text/Dictation 33y.o [id number] triage with c/o lower abdominal pain and rt flank pain. Her EDC made her at 21w3d ,had x4 c/s x1 at 30w last c/s in 7yrs ago, c/o dysuria but no GI symptoms such as nause and vomiting or diarrhea u/s mild hydronephrosis right, no appendix seen Hx of x2 uTI in may and july this yr U/A >.15 WBC 1 RBC PE shows bilateral CVA tenderness, but denies any chills or febrile episodes. admitted for IV antibiotics due to Hx ofx2 UTI . Chief Complaint: dysuria and pelvic pain and rt flank pain Estimated Due Date: Apr 04, 2019 : 5 Para: 4 Spontaneous : 0 Therapeutic : 0 Ultrasounds: Other Obstetrical Complications: None Medical Complications: Genitourinary Past Family/Social History * Past Medical, Surgical, Family and Obstetric Histories reviewed from chart. Blood Type: Unknown Rubella: unknown RPR/VDRL: Unknown GBS Status: Unknown HBsAG: Unknown OB Admission Exam Vital Signs Vital Signs Vital Signs Date Temp Pulse Resp B/P (MAP) Pulse Ox O2 O2 Flow FiO2 Time Delivery Rate 11/25/18 98.4 95 20 122/73 98 Room Air 16:52 (89) Physical Exam HEENT: WNL Heart: Rhythm Normal Lungs: Clear, Equal Abdomen: WNL Extremities: Normal Reflexes: Normal Cervical Dilatation: other Effacement: Other Station: Other Amniotic Fluid: Unevaluable Heart Rate: 150's Contractions on Admission: None Date/Time Contractions Began: FHT intermitently adequate for GA Last 72 hours Lab Results CBC & BMP 11/25/18 18:53 OB Assessment/Plan Other Assessment: A IUP 21w3d RECREATION THERAPIST P admit to hosp IV fluid and antibiotis Rocephin 1gm q24hr ALEN WHEELER MD Nov 25, 2018 22:19
[2018-11-26] MEDS: SOD CHLORIDE 0.9% 1,000 ML IV SCH ×3 (07:03→23:54)
[2018-11-26] MEDS: PRENATAL VITAMIN PO SCH (09:32)
[2018-11-26] MEDS: DOCUSATE SODIUM 100 MG CAP PO SCH (09:32)
[2018-11-26] MEDS: CEFTRIAXONE 1 GM/50 ML (PMX) 50 ML IVPB SCH (22:05)
[2018-11-26] MEDS: ACETAMINOPHEN 325 MG TAB PO PRN (23:59)
[2018-11-27] MEDS: SOD CHLORIDE 0.9% 1,000 ML IV SCH ×3 (08:15→16:09)
[2018-11-27] MEDS: DOCUSATE SODIUM 100 MG CAP PO SCH (08:15)
[2018-11-27] MEDS: PRENATAL VITAMIN PO SCH (08:15)
[2018-11-27] MEDS ORDERED: FERROUS SULFATE (EC) 325 MG TAB PO SCH (10:30)
[2018-11-27] MEDS: CEFTRIAXONE 1 GM/50 ML (PMX) 50 ML IVPB SCH (17:35)
--- NOTE | 2018-11-27 18:35 | PN ---
Date/Time of Note Date/Time of Note DATE: 11/27/18 TIME: 18:25 OB Subjective Subjective Subjective Patient seen and examined. She denies nausea, vomiting, shortness of breath, chest pain, abdominal pain, headache, visual changes, vaginal bleeding or LOF. She also denies urinary symptoms OB Objective Objective Objective General: Patient appears well, alert and oriented, NAD, appropriate mood and affect ABD: gravid, soft, non-tender. Back: No CVA tenderness (B/L) LE: Mild edema. No clubbing, cyanosis, edema, thigh or calf tenderness bilaterally FHT: 130 bpm , moderate variability with acceleration, no deceleration-category I Contractions: None OB Assessment/Plan Other plan: 33 Year-old with SIUP at 21 weeks and 5 days with pyelonephritis. - She is afebrile, vital signs stable and has no complaints - FHR: Category I - She has received Rocephin x3 - Prescription for cephalexin 500 mg every 8 hours for 7 days given - Recommend prophylaxis with cephalexin 500 mg daily for rest of at 4 weeks after delivery - Symptoms and sign of labor, preeclampsia, kick count discussed with patient, she voiced understanding. All of her questions answered. - Patient was discharged home in stable condition with the appropriate discharge instructions provided. I would like patient to have close follow-up with her primary physician or outpatient clinic in 1-2 days or return to triage for worsening symptoms or any other urgent concerns. POONAM WASHBURN Nov 27, 2018 18:35
--- NOTE | 2018-11-27 18:35 | DS ---
Date/Time of Note Date/Time of Note DATE: 11/27/18 TIME: 18:35 Obstetrical Discharge Record Final Diagnosis Final Diagnosis: not delivered Other Final Diagnosis 33 Year-old with SIUP at 21 weeks and 5 days with pyelonephritis. - She is afebrile, vital signs stable and has no complaints - FHR: Category I - She has received Rocephin x3 - Prescription for cephalexin 500 mg every 8 hours for 7 days given - Recommend prophylaxis with cephalexin 500 mg daily for rest of at 4 weeks after delivery - Symptoms and sign of labor, preeclampsia, kick count discussed with patient, she voiced understanding. All of her questions answered. - Patient was discharged home in stable condition with the appropriate discharge instructions provided. I would like patient to have close follow-up with her primary physician or outpatient clinic in 1-2 days or return to triage for worsening symptoms or any other urgent concerns. Condition on Discharge Physical Assessment Voiding: Yes Bowel Movement: Yes Calf Tenderness: No Patient Condition: Stable POONAM WASHBURN Nov 27, 2018 18:35
== END 2018-11-27 18:19 | disposition home or self-care (01) | DRG 833 ==
LOC: L-D 16:24 → OBT 16:24 → L-D 17:26 → OBT 21:00
PROVIDERS: ADMIT Obstetrics & Gynecology; ATTEND Obstetrics & Gynecology
DX: O23.02 Infections of kidney in pregnancy, second trimester (principal); Z3A.21 21 weeks gestation of pregnancy
CPT/HCPCS: 76705; 76775; 76817; 81001; 81003; 85025; 87086; 96360; 96361; G0463; J0696; J7030; J7120